=== PATIENT | male | born 1940 | race Caucasian/White ===

== ENCOUNTER 2023-01-27 08:41 | Day surgery (SDC) | payer MEDICARE ==
[2023-01-27] MEDS ORDERED: Depo-Medrol 40 MG/ML IM ONE (08:42)
[2023-01-27] MEDS ORDERED: LIDOCAINE HCL 2% 100 MG/5 ML IJ ONE (08:42)
[2023-01-27] MEDS ORDERED: DIPRIVAN 200 MG/20 ML IV ONE (10:05)
[2023-01-27] MEDS ORDERED: Versed 2 MG/2 ML Injection ONE (10:05)
[2023-01-27] MEDS ORDERED: Lactated Ringers 1,000 ML IV ONE (14:27)
--- NOTE | 2023-01-27 19:06 | XRAY ---
Indication: Bilateral L4-S1 MBB. Intraoperative fluoroscopy provided for 21 seconds. Single digital spot image submitted for interpretation demonstrates posterior needle tips projecting over the expected left and right L4-S1 nerve roots. Correlate with intraoperative findings/report. Incidental posterior L3-L5 fusion hardware.
--- NOTE | 2023-01-27 19:25 | XRAY ---
21 seconds of fluoroscopy was used in surgery for a bilateral L4-S1 MBB.
== END 2023-01-27 10:33 | disposition home or self-care (01) ==
LOC: SDC-PAIN 08:41
PROVIDERS: ATTEND Psychiatry & Neurology Pain Medicine
DX: M47.816 Spondylosis without myelopathy or radiculopathy, lumbar region (principal); E11.9 Type 2 diabetes mellitus without complications; Z79.899 Other long term (current) drug therapy
CPT/HCPCS: 64493; 64494; 72020; 77002; 82947; J1030; J2250; J2704

== ENCOUNTER 2023-02-24 10:08 | Day surgery (SDC) | payer MEDICARE ==
[2023-02-24] MEDS ORDERED: Depo-Medrol 40 MG/ML IM ONE (10:09)
[2023-02-24] MEDS ORDERED: BUPIVACAINE 0.5% VIAL IJ ONE (10:09)
[2023-02-24] MEDS ORDERED: DIPRIVAN 200 MG/20 ML IV ONE (12:12)
--- NOTE | 2023-02-24 13:45 | XRAY ---
Indication: Bilateral L4-S1 MBB. Intraoperative fluoroscopy provided for 12 seconds. Single digital spot image submitted for interpretation demonstrates posterior needle tips projecting over the expected left and right L4-S1 nerve roots. Correlate with intraoperative findings/report. Incidental posterior L3-L5 fusion hardware.
[2023-02-24] MEDS ORDERED: Lactated Ringers 1,000 ML IV ONE (14:33)
--- NOTE | 2023-02-24 15:13 | XRAY ---
12 seconds of fluoroscopy was used in surgery for a bilateral L4-S1 MBB.
== END 2023-02-24 12:45 | disposition home or self-care (01) ==
LOC: SDC-PAIN 10:08
PROVIDERS: ATTEND Psychiatry & Neurology Pain Medicine
DX: M47.816 Spondylosis without myelopathy or radiculopathy, lumbar region (principal); E11.9 Type 2 diabetes mellitus without complications; Z79.899 Other long term (current) drug therapy
CPT/HCPCS: 64493; 64494; 72020; 77002; 82947; J1030; J2704

== ENCOUNTER 2023-04-07 09:09 | Day surgery (SDC) | payer MEDICARE ==
[2023-04-07] MEDS ORDERED: BUPIVACAINE 0.5% VIAL IJ ONE (09:10)
[2023-04-07] MEDS ORDERED: XYLOCAINE 1% HCL 20 ML MDV IJ ONE (09:10)
[2023-04-07] MEDS ORDERED: Depo-Medrol 40 MG/ML IM ONE (09:10)
[2023-04-07] MEDS ORDERED: DIPRIVAN 200 MG/20 ML IV ONE (10:35)
[2023-04-07] MEDS ORDERED: Lactated Ringers 1,000 ML IV ONE (11:06)
--- NOTE | 2023-04-07 11:26 | XRAY ---
Indication: Right L4-S1 RFA. Intraoperative fluoroscopy provided for 46 seconds. 5 digital spot images submitted for interpretation demonstrates posterior needle tips projecting over the expected right L4-S1. Correlate with intraoperative findings/report. Incidental incompletely visualized lower lumbar spinous process fusion hardware.
--- NOTE | 2023-04-07 13:36 | XRAY ---
46 seconds of fluoroscopy was used in surgery for a right L4-S1 RFA.
== END 2023-04-07 11:11 | disposition home or self-care (01) ==
LOC: SDC-PAIN 09:09
PROVIDERS: ATTEND Psychiatry & Neurology Pain Medicine
DX: M47.816 Spondylosis without myelopathy or radiculopathy, lumbar region (principal); E11.9 Type 2 diabetes mellitus without complications; Z79.899 Other long term (current) drug therapy
CPT/HCPCS: 64635; 64636; 72100; 77002; 82947; 99100; J1030; J2704

== ENCOUNTER 2023-05-26 10:17 | Day surgery (SDC) | payer MEDICARE | END 2023-05-26 10:40 | disposition home or self-care (01) | LOC: SDC-PAIN 10:17 | PROVIDERS: ATTEND Psychiatry & Neurology Pain Medicine | DX: Z53.8 Procedure and treatment not carried out for other reasons (principal); E11.9 Type 2 diabetes mellitus without complications | CPT/HCPCS: 82947 ==

== ENCOUNTER 2023-09-30 07:42 | Day surgery (SDC) | payer MEDICARE ==
[2023-09-30] MEDS ORDERED: BUPIVACAINE 0.5% VIAL IJ ONE (07:43)
[2023-09-30] MEDS ORDERED: Depo-Medrol 40 MG/ML IM ONE (07:43)
[2023-09-30] MEDS ORDERED: XYLOCAINE-MPF 1% 5ML SDV IJ ONE (07:43)
--- NOTE | 2023-09-30 10:57 | XRAY ---
Indication: Left shoulder and subacromial bursa injection. Intraoperative fluoroscopy provided for 17 seconds. 2 digital spot image submitted for interpretation demonstrates needle tip projecting over left glenohumeral joint superiorly. Second needle tip subacromial. Small amount of contrast injected for both needle tip. Correlate with intraoperative findings/report.
--- NOTE | 2023-09-30 11:20 | XRAY ---
17 seconds of fluoroscopy was used in surgery for a left intra-articular shoulder and subacromial bursa injection.
== END 2023-09-30 09:44 | disposition home or self-care (01) ==
LOC: SDC-PAIN 07:42
PROVIDERS: ATTEND Psychiatry & Neurology Pain Medicine
DX: M19.012 Primary osteoarthritis, left shoulder (principal); M75.52 Bursitis of left shoulder; E11.9 Type 2 diabetes mellitus without complications
CPT/HCPCS: 20610; 73030; 77002; 82947; J1030; Q9966

== ENCOUNTER 2023-11-17 09:41 | Day surgery (SDC) | payer MEDICARE ==
[2023-11-17] MEDS ORDERED: LIDOCAINE HCL 2% 100 MG/5 ML IJ ONE (09:42)
[2023-11-17] MEDS ORDERED: LIDOCAINE HCL 1% 50 MG/5 ML VL PF IJ ONE (09:42)
[2023-11-17] MEDS ORDERED: Decadron 4 MG INJ IV ONE (09:42)
[2023-11-17] MEDS ORDERED: Versed 2 MG/2 ML Injection ONE (11:58)
[2023-11-17] MEDS ORDERED: DIPRIVAN 200 MG/20 ML IV ONE (12:01)
[2023-11-17] MEDS ORDERED: DEXMEDETOMIDINE 80 MCG/20ML-NS IV ONE (12:10)
--- NOTE | 2023-11-17 12:33 | XRAY ---
Indication: Left C2-C4 MBB. Intraoperative fluoroscopy provided for 47 seconds. 4 digital spot image submitted for interpretation demonstrates posterior needle tips projecting over expected left C2-C4 nerve roots. Correlate with intraoperative findings/report.
--- NOTE | 2023-11-17 13:23 | XRAY ---
47 seconds of fluoroscopy was used in surgery for a left C2-C4 MBB.
[2023-11-17] MEDS ORDERED: Lactated Ringers 1,000 ML IV ONE (13:41)
== END 2023-11-17 12:38 | disposition home or self-care (01) ==
LOC: SDC-PAIN 09:41
PROVIDERS: ATTEND Psychiatry & Neurology Pain Medicine
DX: M47.812 Spondylosis without myelopathy or radiculopathy, cervical region (principal); E11.9 Type 2 diabetes mellitus without complications
CPT/HCPCS: 64490; 64491; 72040; 77002; 82947; J1100; J2001; J2250; J2704

== ENCOUNTER 2023-12-15 08:46 | Day surgery (SDC) | payer MEDICARE ==
[2023-12-15] MEDS ORDERED: BUPIVACAINE 0.5% VIAL IJ ONE (08:47)
[2023-12-15] MEDS ORDERED: Decadron 4 MG INJ IV ONE (08:47)
[2023-12-15] MEDS ORDERED: DIPRIVAN 200 MG/20 ML IV ONE (10:18)
[2023-12-15] MEDS ORDERED: DEXMEDETOMIDINE 80 MCG/20ML-NS IV ONE (10:19)
[2023-12-15] MEDS ORDERED: Lactated Ringers 1,000 ML IV ONE (10:58)
--- NOTE | 2023-12-15 11:58 | XRAY ---
Indication: Left C2-C4 MBB Intraoperative fluoroscopy provided for 17 seconds. 3 digital spot image submitted for interpretation demonstrates posterior needle tips projecting over expected left C2-C4 nerve roots. Correlate with intraoperative findings/report.
--- NOTE | 2023-12-15 12:39 | XRAY ---
17 seconds of fluoroscopy was used in surgery for a left C2-C4 MBB.
== END 2023-12-15 10:55 | disposition home or self-care (01) ==
LOC: SDC-PAIN 08:46
PROVIDERS: ATTEND Psychiatry & Neurology Pain Medicine
DX: M47.812 Spondylosis without myelopathy or radiculopathy, cervical region (principal); E11.9 Type 2 diabetes mellitus without complications
CPT/HCPCS: 64490; 64491; 72040; 77002; 82947; J1100; J2704

== ENCOUNTER 2024-03-22 08:31 | Day surgery (SDC) | payer MEDICARE ==
[2024-03-22] MEDS ORDERED: Decadron 4 MG INJ IV ONE (08:32)
[2024-03-22] MEDS ORDERED: LIDOCAINE HCL 1% 50 MG/5 ML VL PF IJ ONE (08:32)
[2024-03-22] MEDS ORDERED: BUPIVACAINE 0.5% VIAL IJ ONE (08:32)
[2024-03-22] MEDS ORDERED: DIPRIVAN 200 MG/20 ML IV ONE (10:01)
[2024-03-22] MEDS ORDERED: DEXMEDETOMIDINE 80 MCG/20ML-NS IV ONE ×2 (10:04)
--- NOTE | 2024-03-22 11:38 | XRAY ---
Indication: Left C2-C4 RFA. Intraoperative fluoroscopy provided for 38 seconds. 4 digital spot image submitted for interpretation demonstrates posterior needle tips projecting over the expected left C2-C4 nerve roots. Correlate with intraoperative findings/report.
--- NOTE | 2024-03-22 13:38 | XRAY ---
38 seconds of fluoroscopy was used in surgery for a left C2-C4 RFA.
[2024-03-22] MEDS ORDERED: Lactated Ringers 1,000 ML IV ONE (14:59)
== END 2024-03-22 10:53 | disposition home or self-care (01) ==
LOC: SDC-PAIN 08:31
PROVIDERS: ATTEND Psychiatry & Neurology Pain Medicine
DX: M47.812 Spondylosis without myelopathy or radiculopathy, cervical region (principal); E11.9 Type 2 diabetes mellitus without complications
CPT/HCPCS: 64635; 64636; 72040; 77002; 82947; 99100; J1100; J2001; J2704

== ENCOUNTER 2024-09-06 13:15 | Day surgery (SDC) | payer MEDICARE ==
[2024-09-06] MEDS ORDERED: LIDOCAINE HCL 1% AMPUL 5 ML IJ ONE (13:16)
[2024-09-06] MEDS ORDERED: BUPIVACAINE 0.5% VIAL IJ ONE (13:16)
[2024-09-06] MEDS ORDERED: Depo-Medrol 40 MG/ML IM ONE (13:16)
--- NOTE | 2024-09-06 16:58 | XRAY ---
Indication: Left shoulder and subacromial bursa injection. Intraoperative fluoroscopy provided for 15 seconds. 2 digital spot image submitted for interpretation demonstrates needle tip projecting over left glenohumeral joint. Second needle tip subacromial. Small amount of contrast injected for both needle tip placement. Correlate with intraoperative findings/report.
--- NOTE | 2024-09-06 17:20 | XRAY ---
15 seconds of fluoroscopy was used in surgery for a left intra-articular shoulder and subacromial bursa injection.
== END 2024-09-06 14:35 | disposition home or self-care (01) ==
LOC: SDC-PAIN 13:15
PROVIDERS: ATTEND Psychiatry & Neurology Pain Medicine
DX: M19.012 Primary osteoarthritis, left shoulder (principal); E11.9 Type 2 diabetes mellitus without complications; M75.52 Bursitis of left shoulder
CPT/HCPCS: 20610; 73030; 77002; 82947; Q9966

== ENCOUNTER 2024-10-05 14:18 | Day surgery (SDC) | payer MEDICARE ==
[2024-10-05] MEDS ORDERED: LIDOCAINE HCL 1% AMPUL 5 ML IJ ONE (14:19)
[2024-10-05] MEDS ORDERED: Depo-Medrol 40 MG/ML IM ONE (14:19)
[2024-10-05] MEDS ORDERED: BUPIVACAINE 0.5% VIAL IJ ONE (14:19)
[2024-10-05] MEDS ORDERED: Lactated Ringers 500 ML IV ONE (15:10)
--- NOTE | 2024-10-05 16:50 | XRAY ---
Indication: Left L4-S1 RFA. Intraoperative fluoroscopy provided for 19 seconds. 2 digital spot images submitted for interpretation demonstrates posterior needle tips projecting over expected left L4-S1 nerve roots. Correlate with intraoperative findings/report. Incidental L3-L5 posterior spinous process fusion hardware.
--- NOTE | 2024-10-06 09:52 | XRAY ---
19 seconds of fluoroscopy was used in surgery for a left L4-S1 RFA.
== END 2024-10-05 16:21 | disposition home or self-care (01) ==
LOC: SDC-PAIN 14:18
PROVIDERS: ATTEND Psychiatry & Neurology Pain Medicine
DX: M47.817 Spondylosis without myelopathy or radiculopathy, lumbosacral region (principal); E11.9 Type 2 diabetes mellitus without complications
CPT/HCPCS: 64635; 64636; 72100; 77002; 82947; 93005

== ENCOUNTER 2025-05-09 06:59 | Day surgery (SDC) | payer MEDICARE ==
[2025-05-09] MEDS ORDERED: LIDOCAINE HCL 1% 50 MG/5 ML VL IJ ONE (07:00)
[2025-05-09] MEDS ORDERED: BUPIVACAINE 0.5% VIAL IJ ONE (07:00)
[2025-05-09] MEDS ORDERED: methylPREDNISolone acetate IM ONE (07:00)
[2025-05-09] MEDS ORDERED: propofoL IV ONE (08:03)
[2025-05-09] MEDS ORDERED: Lactated Ringers 1,000 ML IV ONE (09:49)
--- NOTE | 2025-05-09 19:17 | XRAY ---
Indication: Right L4-S1 RFA. Intraoperative fluoroscopy provided for 20 seconds. 4 digital spot image submitted for interpretation demonstrates posterior needle tips projecting over expected right L4-S1 nerve roots. Correlate with intraoperative findings/report. Incidental L3-L5 posterior spinous process fusion hardware
--- NOTE | 2025-05-09 19:37 | XRAY ---
20 seconds of fluoroscopy was used in surgery for a right L4-S1 RFA.
== END 2025-05-09 08:40 | disposition home or self-care (01) ==
LOC: SDC-PAIN 06:59
PROVIDERS: ATTEND Psychiatry & Neurology Pain Medicine
DX: M47.817 Spondylosis without myelopathy or radiculopathy, lumbosacral region (principal); E11.9 Type 2 diabetes mellitus without complications

== ENCOUNTER 2025-06-13 15:14 | Day surgery (SDC) | payer MEDICARE ==
[2025-06-13] MEDS ORDERED: BUPIVACAINE 0.5% VIAL IJ ONE (15:15)
[2025-06-13] MEDS ORDERED: LIDOCAINE HCL 1% 50 MG/5 ML VL IJ ONE (15:15)
[2025-06-13] MEDS ORDERED: methylPREDNISolone acetate IM ONE (15:15)
--- NOTE | 2025-06-13 20:07 | XRAY ---
Indication: Right shoulder injection. Intraoperative fluoroscopy provided for 6 seconds. Single digital spot image submitted for interpretation demonstrates needle tip projecting over right glenohumeral joint superiorly. Small amount of contrast injected for needle tip placement. Correlate with intraoperative findings/report.
--- NOTE | 2025-06-13 20:09 | XRAY ---
Indication: Left shoulder injection. Intraoperative fluoroscopy provided for 12 seconds. 2 digital spot image submitted for interpretation demonstrates needle tip projecting over left glenohumeral joint superiorly. Small amount of contrast injected for needle tip placement. Correlate with intraoperative findings/report.
--- NOTE | 2025-06-13 20:11 | XRAY ---
6 seconds of fluoroscopy used in surgery for a right intra-articular shoulder injection.
--- NOTE | 2025-06-13 20:12 | XRAY ---
12 seconds of fluoroscopy used in surgery for a left intra-articular shoulder injection.
== END 2025-06-13 18:03 | disposition home or self-care (01) ==
LOC: SDC-PAIN 15:14
PROVIDERS: ATTEND Psychiatry & Neurology Pain Medicine
DX: M19.012 Primary osteoarthritis, left shoulder (principal); M19.011 Primary osteoarthritis, right shoulder; E11.9 Type 2 diabetes mellitus without complications